=== PATIENT | female | born 1975 | race Two or more races ===

== ENCOUNTER 2019-11-22 13:34 | Emergency (ER) | payer MEDICAID ==
[~2019-11-22] VITALS: Ht 154.9 cm; Wt 65.8 kg
[2019-11-22 13:31] VITALS: BP 127/84
--- NOTE | 2019-11-22 13:33 | NUR ---
ED Nurse Note: pt walked in to ER from home due to coughing with congestion x 1 week. body temp 100F noted. pt also c/o chest muscle pain due to persistant cough. pt aao x4 and ambulatory. calm but grimacing upong coughing. skin clean and intact. no cardiac or pulmonary distress noted exept coughing.
--- NOTE | 2019-11-22 13:58 | NUR ---
ED Nurse Note: ERPA with pt and assessing.
--- NOTE | 2019-11-22 14:12 | Emergency Room Report ---
History of Present Illness General Chief Complaint: Flu Like Symptoms Source: Patient Present Illness HPI 44-year-old female presents to the emergency department complaining of persistent productive cough with 3 out of 10 in severity chest congestion/body aches in addition to intermittent fevers and chills x1 week. Patient reports she has been frequently visiting her mother who is currently hospitalized for pneumonia. Patient reports that mother was tested for COVID-19 but has not received results yet. Patient denies recent travel. Patient denies known exposure to any persons who have tested positive or are under investigation for COVID-19. She reports she is up-to-date with her vaccinations. She states she has been taking Tylenol as needed for her symptoms. Patient reports she last took some Tylenol yesterday. She denies any other aggravating or relieving factors at this time. She denies significant past medical history. She denies history of asthma, smoking or COPD. Allergies: Coded Allergies: No Known Allergies (Unverified , 11/22/19) COVID-19 Screening Contact w/high risk pt: No Recent Travel to affected area: No Experienced COVID-19 symptoms?: Yes COVID-19 symptoms experienced: Cough, Flu-Like Symptoms Patient History Past Medical History: see triage record Past Surgical History: none Pertinent Family History: none Last Menstrual Period: October 2019 Now: No Immunizations: UTD Reviewed Nursing Documentation: PMH: Agreed; PSxH: Agreed Nursing Documentation-PMH Past Medical History: No Stated History Review of Systems All Other Systems: negative except mentioned in HPI Physical Exam Vital Signs Date Time Temp Pulse Resp B/P (MAP) Pulse Ox O2 Delivery O2 Flow Rate FiO2 11/22/19 13:29 100.0 109 18 127/84 (98) 98 Room Air Sp02 EP Interpretation: reviewed, normal General Appearance: no apparent distress, alert, GCS 15, non-toxic Head: normocephalic, atraumatic Eyes: bilateral eye normal inspection, bilateral eye PERRL ENT: hearing grossly normal, normal voice Neck: full range of motion Respiratory: chest non-tender, lungs clear, normal breath sounds, no respiratory distress, no accessory muscle use, no wheezing, speaking full sentences Cardiovascular #1: regular rate, rhythm, no edema, tachycardia - mild Musculoskeletal: normal range of motion, gait/station normal, non-tender Neurologic: alert, motor strength/tone normal, oriented x3, sensory intact, responsive, speech normal Psychiatric: judgement/insight normal Skin: normal color, normal inspection Lymphatic: no adenopathy Medical Decision Making PA Attestation Dr. Lomeli is my supervising Physician whom patient management has been discussed with. Diagnostic Impression: Primary Impression: Atypical pneumonia Additional Impression: Suspected 2019-nCoV infection ER Course Pt. presents to the ED c/o cough congestion bodyaches, fevers, chills and headaches x [ ] Ddx considered but are not limited to URI, pneumonia, PE, strep pharyngitis, meningitis, COVID-19 Vital signs: Pt. is afebrile, the remaining VS are WNL H&PE are most consistent with URI- no meningeal signs, oropharynx is not involved, no evidence of bacterial infection at this time. Pt. has medium risk of COVID-19 given frequent hospital visits with her mother who is being tx'd for PNA. overall pt. is healthy in appearance, Non-toxic looking, NAD and not showing signs of resp. distress. ORDERS: none required at this time, the diagnosis is clinical ED INTERVENTIONS: None required at this time. --PT. EDUCATION: COVID-19 self quarantine and outpatient conservative symptomatic treatment. DISCHARGE: At this time pt. is stable for d/c to home. Will provide printed patient care instructions, and any necessary prescriptions. Care plan and follow up instructions have been discussed with the patient prior to discharge. Last Vital Signs Date Time Temp Pulse Resp B/P (MAP) Pulse Ox O2 Delivery O2 Flow Rate FiO2 11/22/19 13:31 100.0 108 18 127/84 98 Room Air Disposition: HOME, SELF-CARE Condition: Stable Referrals: [facility] Patient Instructions: Cough, Adult, [id number], Fever, Adult, [id number] Additional Instructions: Take medications as directed. Follow up with a Primary Care Provider in 3-5 days, even if your symptoms have resolved. --Please review list of primary care clinics, if you do not already have a primary care provider Return sooner to ED if new symptoms occur, or current symptoms become worse. Do not drink alcohol, drive, or operate heavy machinery while taking Cough Syrup as this may cause drowsiness. - Please note that this Emergency Department Report was dictated using [employer] senior [employer] technology software, occasionally this can lead to erroneous entry secondary to interpretation by the dictation equipment. Dhara Moise Nov 22, 2019 14:12
[2019-11-22] MEDS ORDERED: ZITHROMAX250 MG ORAL (14:15)
[2019-11-22] MEDS ORDERED: BENZONATATE200 MG ORAL (14:15)
[2019-11-22] MEDS ORDERED: PROMETHAZINE-D118 ML ORAL (14:15)
[2019-11-22] MEDS ORDERED: IBUPROFEN400 MG ORAL (14:15)
[2019-11-22 14:29] VITALS: BP 121/74
--- NOTE | 2019-11-22 14:30 | NUR ---
ED Nurse Note: Pt cleared by health care Provider for discharge. Patient advised to stay home for 14 days and pt agreed with it. DC instructions/prescription was given and explained to pt and verbalized understanding of teachings. All medical deviecs such as ID band removed. Pt is AAO x4, ambulatory and left with all personal belongings.
== END 2019-11-22 14:30 | disposition home or self-care (01) ==
LOC: EDBD 13:34 → EMR 14:00
DX: J18.9 Pneumonia, unspecified organism (principal); Z03.818 Encounter for observation for suspected exposure to other biological agents ruled out
CPT/HCPCS: 99282